=== PATIENT | male | born 1975 | race Caucasian/White ===

== ENCOUNTER 2017-05-14 18:19 | Emergency (ER) | payer BC ==
[~2017-05-14] VITALS: Ht 167.6 cm; Wt 79.4 kg
--- NOTE | ~2017-05-14 | CR212 ---
[facility] A Service of [facility] & [facility] RADIOLOGY TEXT RESULTS PATIENT: BRITANY GRISSOM LOCATION: SED : 77 UNIT #: [id number] AGE: [address]: KARINA SALES SEX: M ORDER DR: [id number] [address] [address] [id number] MR#: [id number] Acc #: [id number] NAME: BRITANY GRISSOM. : 1975 SEX: M STUDY DATE/TIME: 05/14/2017 18:39 UNIT: SED ROOM: STUDY DESCRIPTION: CR Ribs Unilateral 2 View Lt Attending Physician: Karina Sales Ordering Physician: Karina Sales Primary Care Physician: Quin Monsivais A.P.R.N. MEDICAL IMAGING REPORT This report is preliminary unless electronic signature is present. EXAM Left ribs 2 views. HISTORY Left rib pain after fall 1 week ago. FINDINGS Two views of the left ribs demonstrate nondisplaced fracture lateral fifth rib. No pneumothorax. No pleural effusion. No focal infiltrates on the left. Dictated by... Pascual Knapp M.D. THIS IS AN ELECTRONICALLY VERIFIED REPORT Pascual Knapp M.D. at 05/15/2017 11:32 PM DFL/yudith TD: 05/15/2017 07:03 JOB #: [id number] MEDICAL IMAGING REPORT Page 1 of 1
[~2017-05-14 18:19] MED LIST: BACTRIM DS TABL1 TA1 PO; FLEXERIL10 MG PO; GLUCOPHAGE500 MG PO; LANTUS100 U/M1 SQ; VOLTAREN50 MG PO; VOLTAREN75 MG PO
[2017-05-14] MEDS ORDERED: GLUCOTROL (18:30)
[2017-05-14] MEDS ORDERED: OMEPRAZOLE20 M2 (18:30)
== END 2017-05-14 19:47 | disposition home or self-care (01) ==
LOC: SED 18:19
DX: S22.32XA Fracture of one rib, left side, initial encounter for closed fracture (principal); E11.9 Type 2 diabetes mellitus without complications; K21.9 Gastro-esophageal reflux disease without esophagitis; Z90.89 Acquired absence of other organs; Z79.84 Long term (current) use of oral hypoglycemic drugs; Z79.899 Other long term (current) drug therapy; Z88.8 Allergy status to other drugs, medicaments and biological substances; W18.30XA Fall on same level, unspecified, initial encounter; Y92.009 Unspecified place in unspecified non-institutional (private) residence as the place of occurrence of the external cause
CPT/HCPCS: 71100; 99283